=== PATIENT | male | born 1990 | race Caucasian/White ===

== ENCOUNTER 2020-04-18 16:45 | Emergency (ER) | payer MEDICAID ==
[~2020-04-18] VITALS: Ht 172.7 cm; Wt 72.5 kg
[~2020-04-18 16:45] MED LIST: NAPR-435 PO
[2020-04-18 16:49] VITALS: BP 129/86
[2020-04-18] MEDS ORDERED: ketorolac tromethamine 15mg/ml inj. IM ONE (17:20)
[2020-04-18] MEDS ORDERED: IBUP-1984 PO (17:23)
== END 2020-04-18 17:50 | disposition home or self-care (01) ==
LOC: ER 16:46
DX: S90.31XA Contusion of right foot, initial encounter (principal); F17.200 Nicotine dependence, unspecified, uncomplicated; F12.90 Cannabis use, unspecified, uncomplicated; Z72.89 Other problems related to lifestyle; Z87.81 Personal history of (healed) traumatic fracture; X58.XXXA Exposure to other specified factors, initial encounter; Y93.89 Activity, other specified; Y92.89 Other specified places as the place of occurrence of the external cause; Y99.8 Other external cause status
CPT/HCPCS: 73630; 99283

== ENCOUNTER 2020-08-12 17:25 | Emergency (ER) | payer MEDICAID ==
[~2020-08-12] VITALS: Ht 172.7 cm; Wt 67.0 kg
[2020-08-12 17:34] VITALS: BP 118/80
== END 2020-08-12 18:46 | disposition home or self-care (01) ==
LOC: ER 17:26
DX: S63.618A Unspecified sprain of other finger, initial encounter (principal); Y04.0XXA Assault by unarmed brawl or fight, initial encounter; Y93.89 Activity, other specified; Y92.89 Other specified places as the place of occurrence of the external cause; Y99.8 Other external cause status
CPT/HCPCS: 29125; 73140; 99283

== ENCOUNTER 2020-11-17 17:37 | Emergency (ER) | payer MEDICAID ==
[~2020-11-17] VITALS: Ht 170.2 cm; Wt 67.4 kg
[2020-11-17 17:59] VITALS: BP 120/82
[2020-11-17] MEDS ORDERED: CefTRIAXone 1000mg IM Kit (w/lidocaine diluent) IM STA (18:23)
[2020-11-17] MEDS ORDERED: azithromycin 250mg tablet PO ONE (18:25)
[2020-11-17 18:41] LABS: CLARITY,URINE CLEAR (Clear); COLOR,URINE AMBER (Yellow); GLUCOSE, URINE NEGATIVE (Neg); KETONES,URINE NEGATIVE (Neg); LEUKOCYTE ESTERASE ,URINE NEGATIVE (Neg); NITRITES, URINE NEGATIVE (Neg); OCCULT BLOOD,URINE NEGATIVE (Neg); PH,URINE 5.5 (4.8-8.0); PROTEIN,URINE 100 mg/dl (Neg); UA COLLECTION TYPE CLN CATCH MIDSTREAM
[2020-11-17 18:55] LABS: HYALINE CASTS 0-3 /LPF (NEGATIVE); MUCUS STRANDS MANY /LPF (Neg)
[2020-11-17 18:57] LABS: BACTERIA,URINE NONE SEEN /HPF (Neg); RBC,URINE 0-2 /HPF (0-2); SQUAMOUS EPITHELIAL CELL,UR FEW /LPF (FEW); WBC,URINE 0-4 /HPF (0-4)
== END 2020-11-17 19:34 | disposition home or self-care (01) ==
LOC: ER 17:38
DX: R30.0 Dysuria (principal); F12.90 Cannabis use, unspecified, uncomplicated; Z72.89 Other problems related to lifestyle; Z87.81 Personal history of (healed) traumatic fracture; Z79.899 Other long term (current) drug therapy
CPT/HCPCS: 36415; 81001; 87491; 87591; 96372; 99283; J0696

== ENCOUNTER 2021-01-10 15:09 | Emergency (ER) | payer MEDICAID ==
[~2021-01-10] VITALS: Ht 171.4 cm; Wt 68.0 kg
[2021-01-10 16:12] VITALS: BP 121/79
[2021-01-10 17:37] LABS: HIV ANTIBODY 1&2 RAPID NON-REACTIVE (Neg)
[2021-01-12 07:06] LABS: HBSAG SCREEN Negative (Negative)
== END 2021-01-10 18:12 | disposition home or self-care (01) ==
LOC: ER 15:11
DX: Z11.3 Encounter for screening for infections with a predominantly sexual mode of transmission (principal); R53.83 Other fatigue; F12.90 Cannabis use, unspecified, uncomplicated; Z72.89 Other problems related to lifestyle; Z79.899 Other long term (current) drug therapy
CPT/HCPCS: 36415; 86592; 86703; 87340; 99283

== ENCOUNTER 2021-12-13 12:58 | Emergency (ER) | payer MEDICAID ==
[~2021-12-13] VITALS: Ht 170.2 cm; Wt 72.7 kg
[2021-12-13 14:04] VITALS: BP 142/92
[2021-12-13] MEDS ORDERED: AMOX-101 PO (14:35)
[2021-12-13] MEDS ORDERED: IBUP-1986 PO (14:35)
== END 2021-12-14 03:18 | disposition home or self-care (01) ==
LOC: ER 12:58
DX: K08.89 Other specified disorders of teeth and supporting structures (principal); R22.0 Localized swelling, mass and lump, head; F12.10 Cannabis abuse, uncomplicated; Z87.81 Personal history of (healed) traumatic fracture; Z79.899 Other long term (current) drug therapy
CPT/HCPCS: 99283

== ENCOUNTER 2022-01-04 12:30 | Emergency (ER) | payer MEDICAID ==
[~2022-01-04] VITALS: Ht 170.2 cm; Wt 72.7 kg
[~2022-01-04 12:30] MED LIST changes: +IBUP-1986 PO
[2022-01-04 13:36] VITALS: BP 126/79
[2022-01-04] MEDS ORDERED: CLIN300C71 PO (15:30)
== END 2022-01-04 15:51 | disposition home or self-care (01) ==
LOC: ER 12:31
DX: K04.7 Periapical abscess without sinus (principal)
CPT/HCPCS: 99283

== ENCOUNTER 2022-06-30 09:58 | Emergency (ER) | payer MEDICAID ==
[~2022-06-30] VITALS: Ht 172.7 cm; Wt 72.0 kg
[2022-06-30 10:01] VITALS: BP 124/84
== END 2022-06-30 10:20 | disposition home or self-care (01) ==
LOC: ER 09:58
DX: B00.1 Herpesviral vesicular dermatitis (principal)
CPT/HCPCS: 99281

== ENCOUNTER 2022-11-26 09:21 | Emergency (ER) | payer MEDICAID, OTHER ==
[~2022-11-26] VITALS: Ht 172.7 cm; Wt 72.7 kg
[2022-11-26 09:21] VITALS: BP 128/88; PULSE 90; RESP 18; TEMP 98.6; O2SAT 97
[2022-11-26] MEDS ORDERED: ibuprofen tablet 400 MG TABLET PO ONE (10:25)
[2022-11-26] MEDS ORDERED: bacitracin 15gm ointment TP ONE (10:25)
[2022-11-26] MEDS ORDERED: BACI1PAC7 TP (10:27)
[2022-11-26] MEDS ORDERED: IBUP-1984 PO (10:27)
[2022-11-26] MEDS ORDERED: CEPH-585 PO (10:27)
== END 2022-11-26 11:30 | disposition home or self-care (01) ==
LOC: ER 09:21
DX: T24.202A Burn of second degree of unspecified site of left lower limb, except ankle and foot, initial encounter (principal); Z79.899 Other long term (current) drug therapy; Z79.1 Long term (current) use of non-steroidal anti-inflammatories (NSAID); X08.8XXA Exposure to other specified smoke, fire and flames, initial encounter; Y93.89 Activity, other specified; Y92.89 Other specified places as the place of occurrence of the external cause; Y99.8 Other external cause status
CPT/HCPCS: 16000; 99283; A6258

== ENCOUNTER 2022-12-25 15:08 | Emergency (ER) | payer OTHER ==
[~2022-12-25] VITALS: Ht 172.7 cm; Wt 90.0 kg
[2022-12-25 15:16] VITALS: BP 130/81; PULSE 67; RESP 18; TEMP 97.8; O2SAT 98
[2022-12-25] MEDS ORDERED: IBUP-1984 PO (18:14)
== END 2022-12-25 18:24 | disposition home or self-care (01) ==
LOC: ER 15:10
DX: T24.092 Burn of unspecified degree of multiple sites of left lower limb, except ankle and foot (principal); F12.10 Cannabis abuse, uncomplicated; Z87.81 Personal history of (healed) traumatic fracture; X58.XXXD Exposure to other specified factors, subsequent encounter
CPT/HCPCS: 99282

== ENCOUNTER 2025-01-07 15:22 | Emergency (ER) | payer MEDICAID, OTHER ==
[~2025-01-07] VITALS: Ht 172.7 cm; Wt 75.1 kg
[2025-01-07 15:53] VITALS: TEMP 97.3
--- NOTE | 2025-01-07 15:58 | Physician Documentation ---
History of Present Illness ~ Chief Complaint: Laceration Stated Complaint: HEAD LAC Time Seen by MD: 15:58 Primary Medical Doctor: sarah walk-in HPI 34-year-old male had a mechanical fall yesterday uncertain if he lost consciousness suffering a superficial laceration to the right eyebrow. Delayed presentation in the emergency department. Wonders if he needs antibiotics if t he wound is infected. Reports that his tetanus is up-to-date. Patient is not on blood thinners. Medication Reconciliation Allergies: Coded Allergies: No Known Allergies (Unverified , 12/25/22) Scheduled Ibuprofen (Ibuprofen), 1 TAB PO Q8H Scheduled PRN Naproxen Sodium (Naproxen Sodium ER), 1 TAB PO BID PRN for pain Past Medical History Past Medical History: No Pertinent History, Extremity Fracture Past Surgical History: noncontributory, other Other Past Surgical History: Oral surgery Alcohol Use: Occasionally Drug Use: marijuana Lives with: Family, Alone Lives In: Home Occupation: student Review of Systems All Other Systems at this time: Reviewed and Negative Neurological: Reports: headache, dizziness Physical Exam Vital Signs: RN Vital Signs have been reviewed: Yes, Temperature: 97.3, Source: Temporal, Heart Rate: 70, Respiratory Rate: 16, BP: 133/91, Pulse Oximetry: 98, Weight: 75.100 Oxygen Flow Rate: 0 General Appearance: alert, WD/WN, mild distress EENT: PERRL/EOMI, normal ENT inspection Neck: non-tender Cardiovascular: regular rate, rhythm Respiratory: lungs clear Chest: no accessory muscle use Gastrointestinal: normal palpation Skin: normal color, other (1 cm superficial laceration of the right eye with mild surrounding ecchymosis and abrasion) Neurologic: oriented x4 Lymphatic: normal inspection Psychiatric: normal mood/affect Progress Results/Orders Results/Orders Orders - JAMIE SANDOVAL PAC Ct Head (01/07/25 16:09) Completed Orders - JAMIE SANDOVAL PAC Ct Head (01/07/25 16:09) Vital Signs 01/07/25 15:53 Temp 97.3 Pulse 70 Resp 16 B/P (MAP) 133/91 Pulse Ox 98 O2 Flow Rate 0 Medical Decision Making Additional information obtaine: N/A Findings Medical screening examination completed in triage. EOMs entrapment. Patient pending CT imaging to evaluate for intracranial hemorrhage. Wound care to be carried out emergency department. Likely outpatient antibiotics. No need for Tdap update. CT imaging reassuring. Patient management to include topical antibiotic and oral antibiotic. Wound to heal by secondary intention. Patient is safe for discharge. Differential Dx:Considerations: Include: Abrasion, Avulsion, Contusion, Laceration, Fracture Departure Disposition: 01 HOME / SELF CARE / HOMELESS Impression: Primary Impression: Eyebrow laceration Qualified Codes: S01.111A - Laceration without foreign body of right eyelid and periocular area, initial encounter Additional Impression: Concussion Qualified Codes: S06.0X9A - Concussion with loss of consciousness of unspecified duration, initial encounter Condition: Improved Discharge Instructions: Laceration Care, Adult, [id number] Additional Instructions: Please obtain prescriptions to avoid infection to the wound. Please keep wound covered with a Band-Aid. Please return if symptoms worsen. Thank you for visiting emergency department [facility]. Referrals: NO PRIMARY CARE PROVIDER (PCP) Prescriptions Bacitracin Oint Packet* (Bacitracin Oint Packet*) 1 Each Packet 1 PKT TOP ONCE for 30 Days, #30 PKT Prov: JAMIE SANDOVAL 01/07/25 Cephalexin*Monohydrate* (Keflex*) 500 Mg Capsule 1 CAP PO TID, #21 CAP Prov: JAMIE SANDOVAL 01/07/25 Education Educated: Patient Educated regarding: diagnosis, treatment, prognosis, need for follow up Signature Scribe Signature: . Attestation: . JAMIE SANDOVAL Jan 07, 2025 15:58
--- NOTE | 2025-01-07 16:33 | RADIOLOGY REPORT ---
EXAM: CT CT HEAD INDICATION: Head strike with LOC TECHNIQUE: CT images of the head were obtained without administration of IV contrast. CT scans at this facility use dose modulation, iterative reconstruction, and/or weight based dosing when appropriate to reduce radiation dose to as low as reasonably achievable. COMPARISON: None FINDINGS: PARENCHYMA: No acute hemorrhage. There is no mass effect, midline shift, or herniation. There is preservation of the strickland white differentiation. VENTRICLES: No hydrocephalus. EXTRA-AXIAL SPACES: No extra-axial fluid collections. OTHER: The bony structures are intact. Visualized portions of the paranasal sinuses and mastoid air cells are clear. IMPRESSION: 1. No CT evidence of an acute intracranial abnormality.
[2025-01-07] MEDS ORDERED: CEPH-585 PO (16:52)
[2025-01-07] MEDS ORDERED: BACI1PAC7 TOP (16:52)
[2025-01-07 16:53] VITALS: BP 127/83; PULSE 75; RESP 16; O2SAT 97
== END 2025-01-07 16:55 | disposition home or self-care (01) ==
LOC: ER 15:23
DX: S01.111A Laceration without foreign body of right eyelid and periocular area, initial encounter (principal); S06.0X9A Concussion with loss of consciousness of unspecified duration, initial encounter; F12.90 Cannabis use, unspecified, uncomplicated; Z79.899 Other long term (current) drug therapy; Z72.89 Other problems related to lifestyle; W18.30XA Fall on same level, unspecified, initial encounter; Y93.89 Activity, other specified; Y92.89 Other specified places as the place of occurrence of the external cause; Y99.8 Other external cause status
CPT/HCPCS: 70450; 99284